=== PATIENT | female | born 1955 | race Hispanic/Latino ===

== ENCOUNTER 2017-07-18 09:36 | Day surgery (SDC) | payer BC ==
[2017-07-18] MEDS ORDERED: Lactated Ringer's 1,000 ML IV ONE (10:40)
[2017-07-18] MEDS ORDERED: Propofol 10 mg/ml Inj (20 ML) ONE (11:16)
[2017-07-18] MEDS ORDERED: Lidocaine 2% MPF (5 ml) Inj ONE (11:16)
[2017-07-18 11:41] VITALS: TEMP 98.1
[2017-07-18 11:59] VITALS: BP 125/57; PULSE 62; RESP 14; O2SAT 100
== END 2017-07-18 12:16 | disposition home or self-care (01) ==
LOC: H.ENDO 09:36
PROVIDERS: ATTEND Internal Medicine Gastroenterology
DX: Z12.11 Encounter for screening for malignant neoplasm of colon (principal); D12.2 Benign neoplasm of ascending colon; K64.0 First degree hemorrhoids; K57.30 Diverticulosis of large intestine without perforation or abscess without bleeding
CPT/HCPCS: 45380; 88305; J2704; J7120